=== PATIENT | female | born 1990 | race Caucasian/White ===

== ENCOUNTER 2022-11-30 04:45 | Inpatient (IN) | payer OTHER ==
[2022-11-30 05:39] VITALS: BP 116/75; PULSE 86; RESP 20; TEMP 98.3
[2022-11-30 06:23] VITALS: BMI 25.4
[2022-11-30 06:38] LABS: BASO % 0.3 % (0-2.0); EOS % 1.9 % (0-4.5); HEMATOCRIT 28.3 % (32.4-45.2); LYMPH % 15.7 % (8-40); MCHC 35.5 g/dl (32.0-36.0); MEAN CELL VOLUME 87.3 fl (80-96); MEAN PLT VOLUME 9.7 fl (7.5-11.1); NEUT % 73.1 % (42.8-82.8); PLATELET COUNT 311 10^3/uL (134-434); RBC 3.24 M/mm3 (3.60-5.2); WHITE BLOOD COUNT 10.7 K/mm3 (4.0-10.0)
[2022-11-30 06:45] LABS: INR 1.03 (0.83-1.09)
[2022-11-30] MEDS ORDERED: DEXTROSE 5%-LACTATED RINGERS 1,000 ML IV SCH (06:45)
[2022-11-30 06:48] LABS: ACTIVATED PTT 25.8 SECONDS (25.2-36.5)
[2022-11-30 06:53] LABS: POTASSIUM 4.2 mmol/L (3.5-5.1)
[2022-11-30 06:58] LABS: CREATININE 0.6 mg/dL (0.55-1.3)
[2022-11-30] MEDS ORDERED: ELECTROLYTE-148 SOLN 1,000 ML IV SCH (07:45)
[2022-11-30 08:53] LABS: HIV INTERPRETATION NEGATIVE (NEGATIVE)
== END 2022-11-30 08:45 | disposition home or self-care (01) | DRG 563 ==
LOC: JDEL 04:45 → JLDR 05:45
PROVIDERS: ADMIT Specialist; ATTEND Specialist
DX: O60.03 Preterm labor without delivery, third trimester (principal)
CPT/HCPCS: 36415; 80048; 85025; 85610; 85730; 86780; 86850; 86900; 86901; 87389; C9803-CS; U0003; U0005

== ENCOUNTER 2022-12-11 13:40 | Inpatient (IN) | payer OTHER ==
[2022-12-11] MEDS: ELECTROLYTE-148 SOLN 1,000 ML IV SCH ×2 (14:20→18:32)
[2022-12-11] MEDS ORDERED: OXYTOCIN 30 UNITS in 0.9% NS 30 UNIT/500 ML INFUS.BAG IVPB SCH (14:30)
[2022-12-11] MEDS ORDERED: OXYTOCIN 30 UNITS in 0.9% NS 30 UNIT/500 ML INFUS.BAG IVPB ONE (14:38)
[2022-12-11 15:09] VITALS: BMI 25.4
[2022-12-11 16:30] LABS: BASO % 0.4 % (0-2.0); EOS % 0.6 % (0-4.5); HEMATOCRIT 28.5 % (32.4-45.2); HEMOGLOBIN 9.6 GM/dL (10.7-15.3); LYMPH % 12.8 % (8-40); MCH 29.6 pg (25.7-33.7); MCHC 33.8 g/dl (32.0-36.0); MEAN CELL VOLUME 87.6 fl (80-96); MEAN PLT VOLUME 9.6 fl (7.5-11.1); MONO % 7.5 % (3.8-10.2); NEUT % 78.7 % (42.8-82.8); PLATELET COUNT 273 10^3/uL (134-434); RBC 3.25 M/mm3 (3.60-5.2); RDW 13.8 % (11.6-15.6); WHITE BLOOD COUNT 9.6 K/mm3 (4.0-10.0)
[2022-12-11 16:35] LABS: INR 0.98 (0.83-1.09); PROTHROMBIN TIME (PATIENT) 11.4 SEC (9.7-13.0)
[2022-12-11 16:38] LABS: ACTIVATED PTT 26.1 SECONDS (25.2-36.5)
[2022-12-11 16:56] LABS: POTASSIUM 4.1 mmol/L (3.5-5.1)
[2022-12-11 16:57] LABS: CALCIUM 8.4 mg/dL (8.5-10.1)
[2022-12-11 16:58] LABS: BLOOD UREA NITROGEN 7.9 mg/dL (7-18)
[2022-12-11 17:01] LABS: CREATININE 0.6 mg/dL (0.55-1.3)
[2022-12-11] MEDS ORDERED: FENTANYL/BUPIVACAINE/NS/PF - PCEA - 50 ML DISP.SYRIN EP ONE (17:55)
[2022-12-11] MEDS ORDERED: NALOXONE HCL 0.4 MG/ML VIAL IVPUSH PRN (18:34)
[2022-12-11] MEDS ORDERED: FENTANYL/BUPIVACAINE/NS/PF - PCEA - 50 ML DISP.SYRIN EP SCH (18:45)
[2022-12-11] MEDS: FENTANYL/BUPIVACAINE/NS/PF - PCEA - 50 ML DISP.SYRIN EP SCH (19:34)
[2022-12-11] MEDS ORDERED: OXYTOCIN 20 UNITS in 0.9% NS 20 UNIT/1,000 ML INFUS.BAG IV ONE (20:15)
[2022-12-11] MEDS ORDERED: OXYTOCIN 20 UNITS in 0.9% NS 20 UNIT/1,000 ML INFUS.BAG IV SCH (22:30)
[2022-12-11] MEDS ORDERED: IBUPROFEN 600 MG TABLET (FP) PO PRN (22:30)
[2022-12-11] MEDS ORDERED: BENZOCAINE 28 GM HEMORRHOIDAL OINTMENT TP PRN (22:30)
[2022-12-11] MEDS ORDERED: BISACODYL 10 MG SUPP.RECT RC PRN (22:30)
[2022-12-11] MEDS ORDERED: METHYLERGONOVINE MALEATE 0.2 MG/1 ML AMP IM PRN (22:30)
[2022-12-11] MEDS ORDERED: WITCH HAZEL 50% (TUCKS) 40 PAD/JAR PAD TP PRN (22:30)
[2022-12-11] MEDS ORDERED: oxyCODONE HCL 5 MG TABLET PO PRN (22:30)
[2022-12-11] MEDS ORDERED: BENZOCAINE 20% 57 GM BOTTLE TP PRN (22:30)
[2022-12-11] MEDS ORDERED: IBUPROFEN 600 MG TABLET (FP) PO ONE (22:54)
[2022-12-12 01:09] VITALS: RESP 18
[2022-12-12 06:48] LABS: BASO % 0.3 % (0-2.0); EOS % 0.4 % (0-4.5); HEMATOCRIT 26.9 % (32.4-45.2); HEMOGLOBIN 9.1 GM/dL (10.7-15.3); LYMPH % 10.1 % (8-40); MCH 29.8 pg (25.7-33.7); MEAN CELL VOLUME 87.6 fl (80-96); MEAN PLT VOLUME 9.8 fl (7.5-11.1); MONO % 6.6 % (3.8-10.2); NEUT % 82.6 % (42.8-82.8); PLATELET COUNT 261 10^3/uL (134-434); RBC 3.07 M/mm3 (3.60-5.2); RDW 14.2 % (11.6-15.6); WHITE BLOOD COUNT 15.9 K/mm3 (4.0-10.0)
[2022-12-12] MEDS: ACETAMINOPHEN 325 MG TABLET (FP) PO PRN ×2 (13:56→20:20)
[2022-12-12] MEDS: FENTANYL/BUPIVACAINE/NS/PF - PCEA - 50 ML DISP.SYRIN EP SCH (20:14)
[2022-12-12] MEDS ORDERED: SENNOSIDES/DOCUSATE COMBO (SENNA PLUS) TABLET (UD) PO PRN (22:00)
[2022-12-13 10:12] VITALS: BP 125/80; PULSE 80; TEMP 98
== END 2022-12-13 13:40 | disposition home or self-care (01) | DRG 560 ==
LOC: JLDR 13:40 → J3W 23:59
PROVIDERS: ADMIT Specialist; ATTEND Specialist
PROC: 10E0XZZ Delivery of Products of Conception, External Approach (ICD-10-PCS; principal; 2022-12-11)
DX: O66.0 Obstructed labor due to shoulder dystocia (principal); Z3A.39 39 weeks gestation of pregnancy; Z37.0 Single live birth
CPT/HCPCS: 36415; 80048; 85025; 85610; 85730; 86780; 86850; 86900; 86901; C9803-CS; U0003; U0005